=== PATIENT | female | born 1965 | race Caucasian/White ===

== ENCOUNTER 2017-07-08 10:20 | Emergency (ER) | payer MEDICAID ==
[~2017-07-08] VITALS: Ht 160 cm; Wt 105.0 kg
[~2017-07-08 10:20] MED LIST: CARCD120C PO; CEPH500C5 PO; CYCL-1 PO; LEVA15HF4 INH; MELO-83 PO; TEG100T PO; TRAM50TA2 PO; TRAZ-91 PO
[2017-07-08] MEDS ORDERED: normal saline 1000ML IV soln IVB ONE (12:25)
[2017-07-08 12:44] LABS: BASOPHILS % (AUTO) 0.3 % (0-1); EOSINOPHILS # (AUTO) 0.1 X10'3 (0-0.9); EOSINOPHILS % (AUTO) 1.3 % (0-6); HEMATOCRIT 41.5 % (35.0-45.0); HEMOGLOBIN 14.1 g/dl (12.0-16.0); LYMPHOCYTES # (AUTO) 1.9 X10'3 (1.1-4.8); LYMPHOCYTES % (AUTO) 24.4 % (21-51); MEAN CORPUSCULAR HEMOGLOBIN 31.1 PG (27.0-31.0); MEAN CORPUSCULAR VOLUME 91.6 FL (78-98); MEAN PLATELET VOLUME 7.2 FL (7.4-10.4); MONOCYTES # (AUTO) 0.4 X10'3 (0-0.9); MONOCYTES % (AUTO) 5.1 % (2-12); NEUTROPHILS # (AUTO) 5.5 X10'3 (1.8-7.7); NEUTROPHILS % (AUTO) 68.9 % (42-75); PLATELET COUNT 236 X10'3 (140-440); RED BLOOD COUNT 4.53 X10'6 (4.20-5.60); RED CELL DISTRIBUTION WIDTH 13.6 % (11.5-14.5)
[2017-07-08 12:55] LABS: ALANINE AMINOTRANSFERASE 39 U/L (12-78); ALBUMIN 3.5 G/DL (3.4-5.0); ALKALINE PHOSPHATASE 127 IU/L (46-116); ANION GAP 8 (8-16); ASPARTATE AMINO TRANSFERASE 23 U/L (10-37); BILIRUBIN,TOTAL 0.4 MG/DL (0.1-1.0); BLOOD UREA NITROGEN 14 MG/DL (7-18); BUN/CREATININE RATIO 14.6 (6.6-38.0); CALCIUM 9.3 MG/DL (8.5-10.1); CHLORIDE 107 MMOL/L (99-107); CREATININE 0.96 MG/DL (0.40-0.90); GLUCOSE 94 MG/DL (70-104); POTASSIUM 4.5 MMOL/L (3.5-5.1); SODIUM 143 MMOL/L (135-145); TOTAL CARBON DIOXIDE 27.9 MMOL/L (24-32); TOTAL PROTEIN 7.1 G/DL (6.4-8.2); eGFR 61 ML/MIN
[2017-07-08 14:18] VITALS: BP 145/79
== END 2017-07-08 14:20 | disposition home or self-care (01) ==
LOC: ER 10:20
DX: R55 Syncope and collapse (principal); R10.9 Unspecified abdominal pain; R11.0 Nausea; R42 Dizziness and giddiness; I10 Essential (primary) hypertension; G89.29 Other chronic pain; J45.909 Unspecified asthma, uncomplicated; M19.90 Unspecified osteoarthritis, unspecified site; Z90.49 Acquired absence of other specified parts of digestive tract; Z98.890 Other specified postprocedural states; Z88.5 Allergy status to narcotic agent; Z88.8 Allergy status to other drugs, medicaments and biological substances; Z79.899 Other long term (current) drug therapy
CPT/HCPCS: 36415; 80053; 84484; 85025; 93005; 99285; J7030

== ENCOUNTER 2018-06-27 08:37 | Inpatient (IN) | payer MEDICAID | END 2018-06-30 14:50 | disposition home or self-care (01) | LOC: PAS IN 08:37 → ORTHO 4S 14:00 | DX: M17.12 Unilateral primary osteoarthritis, left knee (principal) ==

== ENCOUNTER 2019-04-14 12:22 | Emergency (ER) | payer MEDICAID ==
[~2019-04-14] VITALS: Ht 162.6 cm; Wt 118.6 kg
[~2019-04-14 12:22] MED LIST changes: +ALLO100T PO; -CARCD120C PO; -CEPH500C5 PO; -CYCL-1 PO; +DILT-36 PO; +LORA10TA7 PO; -MELO-83 PO; +NABU500T2 PO; +OMEP-50 PO; -TEG100T PO; -TRAM50TA2 PO; +TRAV5DRO RIGHTEYE; -TRAZ-91 PO
[2019-04-14 12:55] VITALS: BP 222/127
[2019-04-14 13:30] LABS: BASOPHILS % (AUTO) 0.4 % (0-1); EOSINOPHILS # (AUTO) 0.1 X10'3 (0-0.9); EOSINOPHILS % (AUTO) 1.2 % (0-6); HEMATOCRIT 42.4 % (35.0-45.0); HEMOGLOBIN 14.4 g/dl (12.0-16.0); LYMPHOCYTES # (AUTO) 0.6 X10'3 (1.1-4.8); MEAN CORPUSCULAR HEMOGLOBIN 28.9 PG (27.0-31.0); MEAN CORPUSCULAR VOLUME 84.9 FL (78-98); MEAN PLATELET VOLUME 6.7 FL (7.4-10.4); MONOCYTES # (AUTO) 0.5 X10'3 (0-0.9); MONOCYTES % (AUTO) 6.7 % (2-12); NEUTROPHILS # (AUTO) 6.2 X10'3 (1.8-7.7); NEUTROPHILS % (AUTO) 83.7 % (42-75); PLATELET COUNT 252 X10'3 (140-440); RED CELL DISTRIBUTION WIDTH 13.9 % (11.5-14.5); WHITE BLOOD COUNT 7.4 X10'3 (4.5-11.0)
[2019-04-14 13:44] LABS: ALANINE AMINOTRANSFERASE 37 U/L (12-78); ALBUMIN 3.7 G/DL (3.4-5.0); ALBUMIN/GLOBULIN RATIO 0.9 (1.1-1.5); ALKALINE PHOSPHATASE 131 IU/L (46-116); ANION GAP 6 (8-16); ASPARTATE AMINO TRANSFERASE 24 U/L (10-37); BILIRUBIN,TOTAL 0.3 MG/DL (0.1-1.0); BLOOD UREA NITROGEN 13 MG/DL (7-18); BUN/CREATININE RATIO 14.4 (6.6-38.0); CALCIUM 8.8 MG/DL (8.5-10.1); CHLORIDE 103 MMOL/L (99-107); GLUCOSE 103 MG/DL (70-104); POTASSIUM 3.7 MMOL/L (3.5-5.1); SODIUM 138 MMOL/L (135-145); TOTAL CARBON DIOXIDE 29.3 MMOL/L (24-32); TOTAL PROTEIN 7.9 G/DL (6.4-8.2); eGFR 65 ML/MIN
== END 2019-04-14 14:51 | disposition left against medical advice (07) ==
LOC: ER 12:23
DX: R06.02 Shortness of breath (principal); Z53.21 Procedure and treatment not carried out due to patient leaving prior to being seen by health care provider
CPT/HCPCS: 36415; 71046; 80053; 83605; 85025; 87040

== ENCOUNTER 2021-08-23 07:35 | Day surgery (SDC) | payer MEDICAID ==
[~2021-08-23] VITALS: Ht 160 cm; Wt 77.7 kg
[~2021-08-23 07:35] MED LIST changes: +NABU-139 PO; -NABU500T2 PO; -OMEP-50 PO; +OMEP20CA16 PO
[2021-08-23 07:45] VITALS: BP 135/74
[2021-08-23] MEDS ORDERED: LOSA25TA96 PO (07:48)
[2021-08-23] MEDS ORDERED: diphenhydrAMINE 50 mg/ml inj ONE (07:49)
[2021-08-23] MEDS ORDERED: LIDOcaine Viscous 15ml cup ONE (07:49)
[2021-08-23] MEDS ORDERED: MIDAZolam 1 MG/ML 5ML VIAL ONE (07:49)
[2021-08-23] MEDS ORDERED: fentaNYL/PF 50MCG/1 ML 2ML syringe ONE (07:49)
[2021-08-23] MEDS ORDERED: METF-436 PO (07:56)
[2021-08-23 10:14] VITALS: BP 116/68
[2021-08-23 10:17] VITALS: BP 108/63
[2021-08-23 10:27] VITALS: BP 124/65
[2021-08-23 10:37] VITALS: BP 132/73
== END 2021-08-23 10:53 | disposition home or self-care (01) ==
LOC: GI LAB 07:35
PROVIDERS: ATTEND Internal Medicine Gastroenterology
DX: Z09 Encounter for follow-up examination after completed treatment for conditions other than malignant neoplasm (principal); R12 Heartburn; K57.30 Diverticulosis of large intestine without perforation or abscess without bleeding; K21.00 Gastro-esophageal reflux disease with esophagitis, without bleeding; K29.50 Unspecified chronic gastritis without bleeding; I10 Essential (primary) hypertension; E11.9 Type 2 diabetes mellitus without complications; J45.909 Unspecified asthma, uncomplicated; E66.9 Obesity, unspecified; Z68.30 Body mass index [BMI] 30.0-30.9, adult; Z87.891 Personal history of nicotine dependence; Z88.5 Allergy status to narcotic agent; Z88.8 Allergy status to other drugs, medicaments and biological substances; Z86.010 Personal history of colon polyps
CPT/HCPCS: 43239; 45378; 99152; 99153; J1200; J2250; J3010; J7030; Z7512; A4620

== ENCOUNTER 2022-03-27 08:06 | Emergency (ER) | payer MEDICAID ==
[~2022-03-27] VITALS: Ht 160 cm; Wt 119.0 kg
[~2022-03-27 08:06] MED LIST changes: +LOSA25TA96 PO; +METF-436 PO; -NABU-139 PO
[2022-03-27 08:12] VITALS: BP 136/80
[2022-03-27] MEDS ORDERED: ketorolac trometh inj. 60 MG/2 ML VIAL IM ONE (09:20)
[2022-03-27] MEDS ORDERED: triamcinolone acetonide 40mg/ml inj IM ONE (09:20)
[2022-03-27] MEDS ORDERED: HYDROcodone/acetaminophen 5mg/325mg tablet PO ONE (09:20)
[2022-03-27] MEDS ORDERED: ondansetron 4mg rapidly disintigrating tab PO ONE (09:20)
[2022-03-27] MEDS ORDERED: dexamethasone 4mg tablet PO ONE (09:20)
[2022-03-27] MEDS ORDERED: colchicine 0.6mg tablet PO ONE (09:25)
[2022-03-27] MEDS ORDERED: ACET-812 PO (09:28)
[2022-03-27] MEDS ORDERED: INDO50CA96 PO (09:28)
[2022-03-27] MEDS ORDERED: PRED20TA PO (09:28)
== END 2022-03-27 10:30 | disposition home or self-care (01) ==
LOC: ER 08:07
DX: M10.9 Gout, unspecified (principal); I10 Essential (primary) hypertension; J45.909 Unspecified asthma, uncomplicated; M19.90 Unspecified osteoarthritis, unspecified site; G89.29 Other chronic pain; Z90.49 Acquired absence of other specified parts of digestive tract; Z98.890 Other specified postprocedural states; Z88.8 Allergy status to other drugs, medicaments and biological substances; Z88.5 Allergy status to narcotic agent; Z79.899 Other long term (current) drug therapy; Z79.84 Long term (current) use of oral hypoglycemic drugs
CPT/HCPCS: 96372; 99284; J1885; J3301

== ENCOUNTER 2023-08-18 21:17 | Emergency (ER) | payer MEDICAID ==
[~2023-08-18] VITALS: Ht 160 cm; Wt 112.3 kg
[~2023-08-18 21:17] MED LIST changes: +ACET-812 PO; +INDO50CA96 PO; +LOSA-415 PO; -LOSA25TA96 PO
[2023-08-18 21:19] VITALS: BP 153/88; PULSE 80; O2SAT 98
[2023-08-18] MEDS ORDERED: CLIN-197 PO (21:44)
[2023-08-18] MEDS ORDERED: NAPR-56 PO (21:44)
[2023-08-18 21:50] VITALS: RESP 16; TEMP 97.9
== END 2023-08-18 21:52 | disposition home or self-care (01) ==
LOC: ER 21:17
DX: K04.7 Periapical abscess without sinus (principal); I10 Essential (primary) hypertension; J45.909 Unspecified asthma, uncomplicated; F32.A Depression, unspecified; Z98.890 Other specified postprocedural states; Z90.49 Acquired absence of other specified parts of digestive tract; Z88.8 Allergy status to other drugs, medicaments and biological substances; Z79.899 Other long term (current) drug therapy; Z79.2 Long term (current) use of antibiotics
CPT/HCPCS: 99283

== ENCOUNTER 2024-06-12 13:46 | Emergency (ER) | payer MEDICAID ==
[~2024-06-12] VITALS: Ht 160 cm; Wt 90.7 kg
[~2024-06-12 13:46] MED LIST changes: -LEVA15HF4 INH; +LEVA15HF9 INH
[2024-06-12] MEDS: amoxicillin 250mg capsule PO ONE (15:12)
[2024-06-12] MEDS ORDERED: AMOX500C2 PO (15:20)
[2024-06-12 15:28] VITALS: BP 189/90; PULSE 83; RESP 17; TEMP 97.2; O2SAT 99
== END 2024-06-12 15:25 | disposition home or self-care (01) ==
LOC: ER 13:47
DX: K04.7 Periapical abscess without sinus (principal); I10 Essential (primary) hypertension; M19.90 Unspecified osteoarthritis, unspecified site; G89.29 Other chronic pain; F32.A Depression, unspecified; Z88.5 Allergy status to narcotic agent; Z88.8 Allergy status to other drugs, medicaments and biological substances; Z90.49 Acquired absence of other specified parts of digestive tract; Z79.1 Long term (current) use of non-steroidal anti-inflammatories (NSAID); Z79.84 Long term (current) use of oral hypoglycemic drugs; Z79.899 Other long term (current) drug therapy
CPT/HCPCS: 99283